=== PATIENT | female | born 1945 | race Caucasian/White ===

== ENCOUNTER 2023-01-11 00:24 | Inpatient (IN) | payer MEDICARE, OTHER ==
[~2023-01-11] VITALS: Ht 165.1 cm; Wt 72.6 kg
--- NOTE | 2023-01-11 00:41 | NUR ---
Dr. Buchanan at bedside. MSE in progress.
[2023-01-11 01:12] LABS: HEMATOCRIT 43.2 % (31.2-41.9); MEAN CORPUSCULAR HEMOGLOBIN 30.4 uug (24.7-32.8); MEAN CORPUSCULAR VOLUME 94.8 fL (75.5-95.3); PLATELET COUNT (AUTO) 328 K/uL (179-408)
[2023-01-11 01:26] LABS: CARBON DIOXIDE 17 mmol/L (21-32); CHLORIDE 98 mmol/L (98-107); CREATININE 1.6 mg/dL (0.6-1.3); GLUCOSE 108 mg/dL (74-106); POTASSIUM 4.9 mmol/L (3.5-5.1); UREA NITROGEN, BLOOD 43 mg/dL (7-18)
[2023-01-11] MEDS ORDERED: METO-356 PO (01:27)
[2023-01-11] MEDS ORDERED: WARF-68 PO (01:27)
[2023-01-11] MEDS ORDERED: LISI20TA PO (01:27)
[2023-01-11] MEDS ORDERED: AMIO200T5 PO (01:27)
--- NOTE | 2023-01-11 01:28 | NUR ---
Pt's son unable to recall dosages of patient's medications, needs further follow up.
[2023-01-11] MEDS ORDERED: IV NORMAL SALINE 500 ML BAG IV ONE (02:00)
[2023-01-11] MEDS ORDERED: IOHEXOL 350 100 ML INFUS..BTL ONE (02:15)
[2023-01-11] MEDS ORDERED: SWABABLE VALVE TRANSFER SET EA MC ONE (02:15)
[2023-01-11] MEDS ORDERED: IV NORMAL SALINE 250 ML IV ONE (02:15)
--- NOTE | 2023-01-11 02:30 | NUR ---
Patient taken down for CT.
--- NOTE | 2023-01-11 02:58 | NUR ---
Patient back from CT.
--- NOTE | 2023-01-11 04:06 | NUR ---
Assigned TELE rm 308.
[2023-01-11] MEDS ORDERED: MAGNESIUM HYDROXIDE 30 ML LIQUID UDC PO PRN (04:30)
[2023-01-11] MEDS ORDERED: REMEDY ESSENTIAL ZINC PASTE 113 GM TP PRN (04:30)
[2023-01-11] MEDS ORDERED: ACETAMINOPHEN 325 MG TABLET PO PRN (04:30)
[2023-01-11] MEDS ORDERED: ONDANSETRON 4 MG/2 ML VIAL IV PRN (04:30)
--- NOTE | 2023-01-11 04:32 | NUR ---
Report given to DAT Salazar.
[2023-01-11 05:00] VITALS: BP 119/90
--- NOTE | 2023-01-11 05:05 | NUR ---
Pt. admitted to TELE rm 308, under care of Nicole Montalvo [employer] completed DAT Salazar aware of patient's arrival to unit.
--- NOTE | 2023-01-11 07:04 | NUR ---
Pt received from ER DUE TO sob assisted to reposition in bed. Pt resting comfortable in bed. Pt became anxious in AM. Pt requested to be assisted to go to BR. pT REMOVING N/C FREQUENTLY. Endorse care to incoming RN
--- NOTE | 2023-01-11 07:30 | NUR ---
Awake, alert, oriented x 4. O2 at 3L/NC with O2 sat of 100%, titrated to 2L/NC with O2 sat of 94%
[2023-01-11] MEDS ORDERED: AMIODARONE HCL 200 MG TABLET PO SCH (09:00)
[2023-01-11] MEDS ORDERED: PHYTONADIONE 5 MG TABLET PO ONE (09:00)
[2023-01-11] MEDS: CEFTRIAXONE 1 G in IV DEXTROSE 5% 50 ML IV SCH (09:15)
[2023-01-11] MEDS: METOPROLOL SUCCINATE XL 25 MG TAB.SR.24H PO SCH (09:16)
--- NOTE | 2023-01-11 09:16 | NUR ---
Patient took Metoprolol 1/2 tab of 25 mg as requested.
[2023-01-11 09:24] LABS: HEMATOCRIT 42.3 % (31.2-41.9); MEAN CORPUSCULAR HEMOGLOBIN 30.8 uug (24.7-32.8); MEAN CORPUSCULAR VOLUME 95.7 fL (75.5-95.3); PLATELET COUNT (AUTO) 311 K/uL (179-408)
[2023-01-11] MEDS ORDERED: PHYTONADIONE 10 MG/1 ML AMPUL SQ ONE (09:30)
[2023-01-11 09:31] LABS: CARBON DIOXIDE 20 mmol/L (21-32); CHLORIDE 100 mmol/L (98-107); CREATININE 1.4 mg/dL (0.6-1.3); GLUCOSE 83 mg/dL (74-106); POTASSIUM 4.6 mmol/L (3.5-5.1); UREA NITROGEN, BLOOD 41 mg/dL (7-18)
--- NOTE | 2023-01-11 09:35 | NUR ---
INR >10. Vit K given as ordered.
[2023-01-11] MEDS ORDERED: FUROSEMIDE 20 MG/2 ML VIAL IV ONE ×2 (09:45→17:00)
[2023-01-11 11:30] VITALS: BP 98/64
--- NOTE | 2023-01-11 13:41 | NUR ---
Us guided thora postponed due to coags risk.
--- NOTE | 2023-01-11 13:56 | NUR ---
Assisted to the bathroom, continent. Urine Specimen sent to lab.
[2023-01-11 14:33] LABS: *BILIRUBIN,URIN NEGATIVE (NEGATIVE); *BLOOD, URINE NEGATIVE (NEGATIVE); *CLARITY,URINE CLEAR (CLEAR); *COLOR,URINE YELLOW (YELLOW); *KETONES,URINE NEGATIVE (NEGATIVE); *UROBILINOGEN,URINE 0.2 E.U./dl (NORMAL); LEUKOCYTE ESTERASE ,URINE TRACE (NEGATIVE); NITRITE, URINE NEGATIVE (NEGATIVE); PH,URINE 5.5 (5.0-8.0); UGLUCOSE NEGATIVE (NEGATIVE)
[2023-01-11 14:59] LABS: *CREATININE,URINE < 13.0 mg/dL (30-125); *URINE TOTAL PROTEIN RANDOM < 6.0 mg/dL (<150/24HR)
--- NOTE | 2023-01-11 15:57 | NUR ---
Sleeping, appears comfortable.
[2023-01-11 16:00] VITALS: BP 106/74
--- NOTE | 2023-01-11 18:30 | NUR ---
woke up anxious, panicky looking for her son, assisted with phone call, spoke with the son and discussed condition. Patient feels better after talking to the son, denies anxiety and disorientation. Agreed with Renetta
--- NOTE | 2023-01-11 19:30 | NUR ---
Received patient sitting upright in bed. AAOx4. In no apparent distress. Denies any pain or SOB. On O2 at 2LPM via NC in place. O2 sat at 99%. IV site on right FA and left FA intact and patent. A Flutter on tele with HR of 79/min. Needs assessed and attended to. Safety measure initiated and call light within reached.
[2023-01-11 20:34] VITALS: BP 104/64
[2023-01-11 20:37] LABS: RBC,URINE 0-3 /HPF (0-3)
[2023-01-11 20:38] LABS: WBC,URINE 0-3 /HPF (0-3)
[2023-01-12 00:06] VITALS: BP 102/67
[2023-01-12 04:36] VITALS: BP 108/74
--- NOTE | 2023-01-12 05:44 | NUR ---
Slept well through out the night. Remains [id number] forgetful. No complain of any pain or SOB. O2 at 2LPM via NC in place. IV site on right FA and left FA intact and patent. A Flutter on tele with HR of 64/min. Needs attended to and met. Safety measure maintained and call light within reached.
[2023-01-12] MEDS: PANTOPRAZOLE SODIUM 40 MG TABLET.DR PO SCH (06:03)
[2023-01-12 07:26] LABS: MEAN CORPUSCULAR HEMOGLOBIN 30.8 uug (24.7-32.8); MEAN CORPUSCULAR VOLUME 94.6 fL (75.5-95.3); PLATELET COUNT (AUTO) 287 K/uL (179-408)
--- NOTE | 2023-01-12 07:44 | NUR ---
Awake, alert, oriented x 4, calm and cooperative with care. Denies pain or shortness of breath. O2 at 2L/NC
[2023-01-12 08:24] LABS: THYROID STIMULATING HORMONE 15.236 mIU/mL (0.358-3.740)
[2023-01-12] MEDS: METOPROLOL SUCCINATE XL 25 MG TAB.SR.24H PO SCH (09:00)
[2023-01-12] MEDS: CEFTRIAXONE 1 G in IV DEXTROSE 5% 50 ML IV SCH (09:54)
[2023-01-12] MEDS: FUROSEMIDE 40 MG/4 ML VIAL IV SCH ×2 (09:55→20:50)
[2023-01-12 10:25] LABS: ALANINE AMINOTRANSFERASE 191 U/L (14-59); ALKALINE PHOSPHATASE 348 U/L (50-136); ASPARTATE AMINOTRANSFERASE 141 U/L (15-37); BILIRUBIN,TOTAL 1.7 mg/dL (0.2-1.0); CARBON DIOXIDE 21 mmol/L (21-32); CHLORIDE 101 mmol/L (98-107); CHOLESTEROL 146 mg/dL (<200); CREATININE 1.5 mg/dL (0.6-1.3); GLUCOSE 81 mg/dL (74-106); HDL CHOLESTEROL 26 mg/dL (40-60); MAGNESIUM 2.1 mg/dL (1.8-2.4); POTASSIUM 3.3 mmol/L (3.5-5.1); TOTAL PROTEIN, SERUM 6.9 g/dL (6.4-8.2); TRIGLYCERIDES 91 MG/DL (30-150); UREA NITROGEN, BLOOD 35 mg/dL (7-18)
--- NOTE | 2023-01-12 10:30 | NUR ---
Ambulated with PT. Off O2 with O2 sat of 98%, room air maintained.
[2023-01-12 10:38] LABS: CREATINE KINASE, TOTAL 91 U/L (26-192)
[2023-01-12] MEDS ORDERED: PHYTONADIONE 10 MG/1 ML AMPUL SQ ONE (11:15)
[2023-01-12] MEDS ORDERED: BISACODYL 10 MG SUPP.RECT RC ONE (11:15)
[2023-01-12 12:00] VITALS: BP 100/70
--- NOTE | 2023-01-12 13:15 | NUR ---
INR >10, Vitamin K 10 mg given as ordered. No BM x 2 days, Dulcolax suppository given.
[2023-01-12 16:00] VITALS: BP 101/70
--- NOTE | 2023-01-12 16:32 | NUR ---
With BM after Dulcolax suppository to formed brownish stool in moderate amount followed by loose stool in small amount
--- NOTE | 2023-01-12 18:44 | NUR ---
Room air maintained with O2 sat of 97%. No shortness of breath noted. With adequate urine output. No bleeding noted.
--- NOTE | 2023-01-12 19:42 | NUR ---
Received patient lying in bed Asleep but easily arouse. AAOx3-4 with periods of forgetfulness. In no acute distress. Denies any pain or SOB. A. Flutter in tele with HR of 73/min. IV site on right FA and left FA intact and patent. Safety measure initiated and call light within reached.
[2023-01-12 20:00] VITALS: BP 101/61
--- NOTE | 2023-01-12 21:04 | NUR ---
Patient still requesting fleet enema. Reminded patient that she had a bowel movement x2 during the day shift per RN report. Patient stated it was not much. Informed [employer]NAGER [employer] Selvin, ordered Milk of Magnesia 30ML POx1. Will carry out order.
[2023-01-12] MEDS ORDERED: MAGNESIUM HYDROXIDE 30 ML LIQUID UDC PO ONE (21:15)
[2023-01-13] VITALS: BP 102/61
[2023-01-13 04:00] VITALS: BP 107/58
--- NOTE | 2023-01-13 05:43 | NUR ---
Remains AAOx3-4 but forgetful. No complain of any pain or SOB. IV site on right FA and left FA intact and patent. A Flutter on tele with HR of 72/min. Needs attended to and met. Safety measure maintained and call light within reached.
[2023-01-13] MEDS: PANTOPRAZOLE SODIUM 40 MG TABLET.DR PO SCH (06:07)
[2023-01-13 07:15] LABS: HEMATOCRIT 41.2 % (31.2-41.9); MEAN CORPUSCULAR HEMOGLOBIN 30.5 uug (24.7-32.8); MEAN CORPUSCULAR VOLUME 93.1 fL (75.5-95.3); PLATELET COUNT (AUTO) 270 K/uL (179-408)
[2023-01-13 07:30] LABS: CARBON DIOXIDE 30 mmol/L (21-32); CHLORIDE 101 mmol/L (98-107); CREATININE 1.2 mg/dL (0.6-1.3); GLUCOSE 81 mg/dL (74-106); PHOSPHOROUS 2.4 mg/dL (2.5-4.9); POTASSIUM 3.2 mmol/L (3.5-5.1); UREA NITROGEN, BLOOD 25 mg/dL (7-18)
[2023-01-13] MEDS: METOPROLOL SUCCINATE XL 25 MG TAB.SR.24H PO SCH (09:00)
[2023-01-13] MEDS ORDERED: POTASSIUM CHLORIDE 20 MEQ TAB.PRT.SR PO ONE (09:00)
[2023-01-13 09:43] VITALS: BP 90/61
[2023-01-13] MEDS: CEFTRIAXONE 1 G in IV DEXTROSE 5% 50 ML IV SCH (09:45)
[2023-01-13] MEDS ORDERED: FUROSEMIDE 40 MG TABLET PO SCH (10:30)
[2023-01-13 12:00] VITALS: BP 95/63
[2023-01-13 16:00] VITALS: BP 96/63
[2023-01-13] MEDS ORDERED: NEUTRA PHOS PACKET PO ONE (16:00)
[2023-01-13 16:06] LABS: A/G RATIO 0.7 (0.7-1.7); ALBUMIN 2.6 g/dL (2.9-4.4); ALPHA-1-GLOBULIN 0.3 g/dL (0.0-0.4); ALPHA-2-GLOBULIN 0.6 g/dL (0.4-1.0); BETA GLOBULIN 1.2 g/dL (0.7-1.3); GAMMA GLOBULIN 1.4 g/dL (0.4-1.8); GLOBULIN, TOTAL 3.5 g/dL (2.2-3.9); M-SPIKE Not Observed g/dL (Not Observed)
[2023-01-13 20:00] VITALS: BP 93/61
[2023-01-14 04:00] VITALS: BP 102/73
[2023-01-14] MEDS: PANTOPRAZOLE SODIUM 40 MG TABLET.DR PO SCH (06:48)
[2023-01-14] MEDS ORDERED: MINERAL OIL FLEET ENEMA 133 ML BOTTLE RC ONE (08:15)
[2023-01-14] MEDS: METOPROLOL SUCCINATE XL 25 MG TAB.SR.24H PO SCH (08:43)
[2023-01-14] MEDS: CEFTRIAXONE 1 G in IV DEXTROSE 5% 50 ML IV SCH (08:45)
[2023-01-14 11:35] VITALS: BP 99/55
[2023-01-14 12:41] LABS: MAGNESIUM 2.3 mg/dL (1.8-2.4)
--- NOTE | 2023-01-14 17:40 | NUR ---
Pt. is in bed and resting at this time. Ambulatory. Call light within reach. No c/o pain. Able to make the need known. Will keep monitoring the patient.
[2023-01-14 20:09] VITALS: BP 92/63
[2023-01-15 05:00] VITALS: BP 112/84
[2023-01-15] MEDS: PANTOPRAZOLE SODIUM 40 MG TABLET.DR PO SCH (06:31)
[2023-01-15 06:51] LABS: HEMATOCRIT 43.7 % (31.2-41.9); MEAN CORPUSCULAR VOLUME 93.7 fL (75.5-95.3); PLATELET COUNT (AUTO) 306 K/uL (179-408)
[2023-01-15 07:47] LABS: ALANINE AMINOTRANSFERASE 112 U/L (14-59); ALKALINE PHOSPHATASE 241 U/L (50-136); ASPARTATE AMINOTRANSFERASE 52 U/L (15-37); BILIRUBIN,TOTAL 1.4 mg/dL (0.2-1.0); CARBON DIOXIDE 28 mmol/L (21-32); CHLORIDE 94 mmol/L (98-107); CREATININE 1.1 mg/dL (0.6-1.3); GLUCOSE 98 mg/dL (74-106); POTASSIUM 4.4 mmol/L (3.5-5.1); TOTAL PROTEIN, SERUM 7.5 g/dL (6.4-8.2); UREA NITROGEN, BLOOD 15 mg/dL (7-18)
[2023-01-15 08:13] LABS: PHOSPHOROUS 2.6 mg/dL (2.5-4.9)
[2023-01-15 08:14] LABS: MAGNESIUM 2.4 mg/dL (1.8-2.4)
[2023-01-15] MEDS: CEFTRIAXONE 1 G in IV DEXTROSE 5% 50 ML IV SCH (08:37)
[2023-01-15] MEDS: METOPROLOL SUCCINATE XL 25 MG TAB.SR.24H PO SCH (08:42)
--- NOTE | 2023-01-15 09:30 | NUR ---
per md orders explain to the pt strict intake output orders ,pt went to the restroom and removed the hat and said she do not want to use the hat to urinate charge nurse and md made aware
[2023-01-15] MEDS ORDERED: PANT40TA49 PO (11:26)
[2023-01-15] MEDS ORDERED: APIX2.5T PO (11:26)
[2023-01-15] MEDS ORDERED: FURO-152 PO (11:26)
[2023-01-15 11:50] VITALS: BP 93/61
--- NOTE | 2023-01-15 12:31 | NUR ---
pt went to [facility] for [facility] in stable condition
--- NOTE | 2023-01-15 14:18 | NUR ---
pt received back from [facility] after the mrcp in stable condition,
[2023-01-15 16:07] VITALS: BP 107/81
--- NOTE | 2023-01-15 19:52 | NUR ---
dc orders received noted and carried out,dc heplock per md orders,rn report given to the halfway rn char.pt left the facility via ambulances in stable condition
== END 2023-01-15 19:50 | DRG 280 ==
LOC: ER 00:31 → TELE3 04:05 → MEDSURG3 01-13 10:45
PROVIDERS: ADMIT Nurse Practitioner Acute Care; ATTEND Internal Medicine
DX: I11.0 Hypertensive heart disease with heart failure (principal); G92.8 Other toxic encephalopathy; I21.A1 Myocardial infarction type 2; I50.23 Acute on chronic systolic (congestive) heart failure; N17.0 Acute kidney failure with tubular necrosis; K83.1 Obstruction of bile duct; J96.90 Respiratory failure, unspecified, unspecified whether with hypoxia or hypercapnia; E87.1 Hypo-osmolality and hyponatremia; D68.9 Coagulation defect, unspecified; I48.92 Unspecified atrial flutter; N39.0 Urinary tract infection, site not specified; I42.9 Cardiomyopathy, unspecified; Z20.822 Contact with and (suspected) exposure to COVID-19; K83.8 Other specified diseases of biliary tract; R26.2 Difficulty in walking, not elsewhere classified; R53.81 Other malaise; T45.515A Adverse effect of anticoagulants, initial encounter; Y92.89 Other specified places as the place of occurrence of the external cause; Z86.711 Personal history of pulmonary embolism; Z96.641 Presence of right artificial hip joint; K59.00 Constipation, unspecified; I48.0 Paroxysmal atrial fibrillation; R47.81 Slurred speech; Z96.642 Presence of left artificial hip joint; G89.29 Other chronic pain; I08.1 Rheumatic disorders of both mitral and tricuspid valves; I25.10 Atherosclerotic heart disease of native coronary artery without angina pectoris; E87.6 Hypokalemia; Z79.01 Long term (current) use of anticoagulants; Z79.899 Other long term (current) drug therapy
CPT/HCPCS: 36415; 70450; 71045; 71275; 73502; 74181; 76705; 76770; 83735; 83970; 84100; 84155; 84165; 84300; 84443; 84484; 85025; 85610; 93005; 93307; A4663; G0378; J0696; J1940; J3430; J7040; Q9967